=== PATIENT | female | born 1940 | race Caucasian/White ===

== ENCOUNTER 2021-03-23 11:17 | Inpatient (IN) | payer OTHER ==
[~2021-03-23] VITALS: Ht 152.4 cm; Wt 54.0 kg
[2021-03-23 14:31] LABS: HEMATOCRIT. 37.6 % (36.0-48.0); MEAN CORPUSCULAR HEMOGLOBIN 26.6 pg (28.0-32.0); MEAN CORPUSCULAR VOLUME 83.1 fL (81.0-99.0); MEAN PLATELET VOLUME 9.4 fl (7.4-10.4); PLATELET 192 x1000/uL (130-400); RED BLOOD CELL COUNT 4.52 mill/uL (4.2-5.4); RED CELL DISTRIBUTION WIDTH 15.9 % (11.6-14.6)
[2021-03-23 14:33] LABS: CHLORIDE 108 mEq/L (98-107)
[2021-03-23 16:03] LABS: PLATELET ESTIMATE NORMAL
[2021-03-23] MEDS ORDERED: SODIUM CHLORIDE 0.9% 1,000 ML IV ONE (17:00)
[2021-03-23] MEDS ORDERED: ACETAMINOPHEN 325MG TABLET PO PRN (18:15)
[2021-03-23] MEDS ORDERED: ONDANSETRON HCL 4MG/2ML INJ IV PRN (18:15)
[2021-03-23] MEDS: SODIUM CHLORIDE 0.45% 1,000 ML IV SCH (18:52)
[2021-03-23 18:59] LABS: CLARITY URINE TURBID (CLEAR); COLOR URINE YELLOW (YELLOW); KETONES URINE NEGATIVE (NEGATIVE); LEUKOCYTE ESTERASE URINE 3+ (NEGATIVE); NITRITE URINE POSITIVE (NEGATIVE); OCCULT BLOOD URINE 1+ (NEGATIVE); PH URINE 5.5 (4.5-8.0); PROTEIN URINE 1+ (NEGATIVE); SPECIFIC GRAVITY URINE 1.017 (1.005-1.030); UROBILINOGEN URINE 0.2 E.U./dL (0.2-1.0)
[2021-03-24] MEDS: SODIUM CHLORIDE 0.45% 1,000 ML IV SCH ×2 (08:30→21:21)
[2021-03-24] MEDS ORDERED: CEFTRIAXONE 1 G PREMIX 50 ML IV SCH (09:30)
[2021-03-24 16:11] LABS: BASOPHILS % 0.3 % (0.0-2.0); EOSINOPHILS % 0.2 % (0.0-5.0); HEMATOCRIT. 38.5 % (36.0-48.0); HEMOGLOBIN. 12.3 g/dL (12.0-16.0); LYMPHOCYTES % 11.2 % (20.0-50.0); MEAN CORPUSCULAR VOLUME 84.4 fL (81.0-99.0); MEAN PLATELET VOLUME 9.3 fl (7.4-10.4); MONOCYTES % 12.7 % (2.0-8.0); NEUTROPHILS % 75.6 % (40.0-76.0); PLATELET 165 x1000/uL (130-400); RED BLOOD CELL COUNT 4.57 mill/uL (4.2-5.4); RED CELL DISTRIBUTION WIDTH 16.1 % (11.6-14.6)
[2021-03-24 16:17] LABS: CHLORIDE 109 mEq/L (98-107)
[2021-03-25] MEDS ORDERED: DEXTROSE 50% WATER 50ML SYRINGE IV PRN (07:00)
[2021-03-25 12:00] VITALS: BP 135/49
[2021-03-25] MEDS: AMLODIPINE 10MG TABLET PO SCH (13:40)
[2021-03-25] MEDS: SODIUM CHLORIDE 0.45% 1,000 ML IV SCH (13:40)
[2021-03-25] MEDS: CEFTRIAXONE 1,000 MG in DEXTROSE 5% WATER 50 ML IV SCH (13:40)
[2021-03-25 16:00] VITALS: BP 145/54
[2021-03-25] MEDS ORDERED: LORAZEPAM 2MG/ML CPJ IV PRN (18:00)
[2021-03-25] MEDS ORDERED: QUET25TA MT (18:44)
[2021-03-25] MEDS ORDERED: DONE5TAB26 MT (18:44)
[2021-03-25] MEDS ORDERED: IBUP-2028 MT (18:44)
[2021-03-25] MEDS ORDERED: MEMA10TA55 PO (18:44)
[2021-03-25] MEDS ORDERED: QUETIAPINE FUMARATE 25MG TABLET PO SCH (19:45)
[2021-03-25 20:00] VITALS: BP 123/61
[2021-03-25] MEDS ORDERED: QUETIAPINE FUMARATE 25MG TABLET PO PRN (20:00)
[2021-03-25] MEDS: MEMANTINE HCL 10MG TABLET PO SCH (22:13)
[2021-03-25] MEDS: DONEPEZIL HCL 10MG TABLET PO SCH (22:13)
[2021-03-26] MEDS: SODIUM CHLORIDE 0.45% 1,000 ML IV SCH (00:11)
[2021-03-26 00:24] VITALS: BP 150/71
[2021-03-26 04:00] VITALS: BP 136/73
[2021-03-26] MEDS: CEFTRIAXONE 1,000 MG in DEXTROSE 5% WATER 50 ML IV SCH (08:28)
[2021-03-26] MEDS: ASPIRIN 81MG TABLET PO SCH (08:29)
[2021-03-26] MEDS: DONEPEZIL HCL 10MG TABLET PO SCH (08:29)
[2021-03-26] MEDS: MEMANTINE HCL 10MG TABLET PO SCH (08:29)
[2021-03-26] MEDS: AMLODIPINE 10MG TABLET PO SCH (08:29)
[2021-03-26 12:00] VITALS: BP 119/54
[2021-03-26 16:08] VITALS: BP 114/44
[2021-03-26 20:00] VITALS: BP 120/48
[2021-03-27 00:38] VITALS: BP 112/51
[2021-03-27] MEDS: SODIUM CHLORIDE 0.45% 1,000 ML IV SCH ×2 (02:32→15:33)
[2021-03-27 04:00] VITALS: BP 126/55
[2021-03-27] MEDS: MEMANTINE HCL 10MG TABLET PO SCH (08:52)
[2021-03-27] MEDS: DONEPEZIL HCL 10MG TABLET PO SCH (08:52)
[2021-03-27] MEDS: AMLODIPINE 10MG TABLET PO SCH (08:52)
[2021-03-27] MEDS: CEFTRIAXONE 1,000 MG in DEXTROSE 5% WATER 50 ML IV SCH (08:52)
[2021-03-27] MEDS: ASPIRIN 81MG TABLET PO SCH (08:52)
[2021-03-27 12:00] VITALS: BP 121/88
[2021-03-27 20:00] VITALS: BP 124/43
[2021-03-28] VITALS: BP 150/57
[2021-03-28 04:00] VITALS: BP 140/48
[2021-03-28] MEDS: SODIUM CHLORIDE 0.45% 1,000 ML IV SCH ×2 (06:24→18:15)
[2021-03-28] MEDS: ASPIRIN 81MG TABLET PO SCH (09:08)
[2021-03-28] MEDS: MEMANTINE HCL 10MG TABLET PO SCH (09:08)
[2021-03-28] MEDS: DONEPEZIL HCL 10MG TABLET PO SCH (09:08)
[2021-03-28] MEDS: AMLODIPINE 10MG TABLET PO SCH (09:08)
[2021-03-28] MEDS: CEFTRIAXONE 1,000 MG in DEXTROSE 5% WATER 50 ML IV SCH (09:08)
[2021-03-28] MEDS ORDERED: LEVO500T89 MT (10:51)
[2021-03-28 16:00] VITALS: BP 136/53
[2021-03-28 16:55] VITALS: BP 136/53
== END 2021-03-28 18:58 | disposition home or self-care (01) | DRG 871 ==
LOC: ER 11:27 → MICUSO 17:55 → 7WST 03-25 11:30
PROVIDERS: ADMIT Internal Medicine; ATTEND Internal Medicine
DX: A41.9 Sepsis, unspecified organism (principal); U07.1 COVID-19; E44.0 Moderate protein-calorie malnutrition; R00.1 Bradycardia, unspecified; N30.90 Cystitis, unspecified without hematuria; E87.8 Other disorders of electrolyte and fluid balance, not elsewhere classified; I16.0 Hypertensive urgency; F02.80 Dementia in other diseases classified elsewhere, unspecified severity, without behavioral disturbance, psychotic disturbance, mood disturbance, and anxiety; G30.9 Alzheimer's disease, unspecified; Z86.73 Personal history of transient ischemic attack (TIA), and cerebral infarction without residual deficits; Z79.899 Other long term (current) drug therapy; Z68.23 Body mass index [BMI] 23.0-23.9, adult
CPT/HCPCS: 36415; 71045; 80048; 80053; 81003; 82962; 84484; 85025; 87077; 87186; 87426; 93005; 99291; J0696; J7030; J7060